=== PATIENT | female | born 2000 | race Caucasian/White ===

== ENCOUNTER 2019-02-17 17:49 | Emergency (ER) | payer OTHER ==
[2019-02-17 18:18] VITALS: BP 115/68; PULSE 79; TEMP 98.7; BMI 22.1
--- NOTE | 2019-02-17 18:32 | PDOC ---
History of Present Illness - General Chief Complaint: Urinary Problem Stated Complaint: ABD PAIN Time Seen by Provider: 02/17/19 18:28 History Source: Patient Exam Limitations: Clinical Condition - History of Present Illness Initial Comments: 02/17/19 18:36 Patient with no significant past medical history present with complaint of urinary frequency, dysuria and suprapubic tenderness radiating to lower back since yesterday. Patient denies fever, chills, nausea, vomiting. Denies any other symptoms. Denies vaginal discharge, vaginal bleeding. Denies IUD contraceptive use. LMP 02/08 Timing/Duration: 24 hours, other (2 days) Past History - Past Medical History Allergies/Adverse Reactions: Allergies Allergy/AdvReac Type Severity Reaction Status Date / Time No Known Allergies Allergy Verified 08/13/16 07:24 Home Medications: Ambulatory Orders Ciprofloxacin [Cipro (Restricted To Id)] 500 mg PO Q12H 5 Days #10 tablet Phenazopyridine HCl [Pyridium] 100 mg PO TID 2 Days #6 tablet 02/17/19 Ranitidine [Zantac -] 150 mg PO ASDIR 02/17/19 COPD: No Thyroid Disease: No - Surgical History Appendectomy: Yes - Immunization History Immunization Up to Date: Yes - Suicide/Smoking/Psychosocial Hx Smoking History: Never smoked Hx Alcohol Use: No Drug/Substance Use Hx: No Substance Use Type: None Review of Systems - Review of Systems Able to Perform ROS?: Yes Is the patient limited Kinyarwanda proficient: No Constitutional: No: Chills, Fever, Malaise HEENTM: No: Symptoms Reported Respiratory: No: Symptoms reported Cardiac (ROS): No: Symptoms Reported ABD/GI: No: Nausea, Vomiting : Yes: See HPI, Burning, Dysuria, Frequency, Pain (suprapubic discomfort), Urgency. No: Discharge, Hematuria Musculoskeletal: Yes: See HPI All Other Systems: Reviewed and Negative *Physical Exam - Vital Signs Last Vital Signs Temp Pulse Resp BP Pulse Ox 98.7 F 79 17 115/68 100 02/17/19 18:15 02/17/19 18:15 02/17/19 18:15 02/17/19 18:15 02/17/19 18:15 - Physical Exam Comments: 02/17/19 18:40 GENERAL: Well developed, well nourished. Awake and alert. No acute distress. NECK: Supple. Full ROM. CARDIOVASCULAR: Regular rate and rhythm. No murmurs, rubs, or gallops. Distal pulses are 2+ and symmetric. PULMONARY: No evidence of respiratory distress. Lungs clear to auscultation bilaterally. No wheezing, rales or rhonchi. ABDOMINAL: mild suprapubic tenderness. Soft. Non-distended. No rebound or guarding. No organomegaly. Normoactive bowel sounds. MUSCULOSKELETAL Normal range of motion at all joints. SKIN: Warm and dry. Normal capillary refill. NEUROLOGICAL: Alert, awake, appropriate. Gait is normal without ataxia. PSYCHIATRIC: Cooperative. Good eye contact. Appropriate mood General Appearance: Yes: Nourished, Appropriately Dressed. No: Apparent Distress Medical Decision Making - Medical Decision Making 02/17/19 18:38 Patient with no significant past medical history present with complaint of urinary frequency, dysuria and suprapubic tenderness radiating to lower back since yesterday. Patient denies fever, chills, nausea, vomiting. Denies any other symptoms. Exam significant for mild suprapubic discomfort without guarding or rebound otherwise normal abdominal exam. Normal cardio exam. UA and urine culture lab ordered. Urine hCG lab ordered. Treat based on urine lab results 02/17/19 19:47 urine hcg negative. UA with no significant findings. Patient will be treated empirically with cipro x 5 days pending UCx results with PCP follow-up *DC/Admit/Observation/Transfer Diagnosis at time of Disposition: Dysuria Abdominal pain Qualifiers: Abdominal location: unspecified location Qualified Code(s): R10.9 - Unspecified abdominal pain - Discharge Dispostion Disposition: HOME Condition at time of disposition: Stable Decision to Admit order: No - Prescriptions Prescriptions: Ciprofloxacin [Cipro (Restricted To Id)] 500 mg PO Q12H 5 Days #10 tablet Phenazopyridine HCl [Pyridium] 100 mg PO TID 2 Days #6 tablet - Referrals Referrals: Cynthia Hansen MD [Primary Care Provider] - - Patient Instructions Printed Discharge Instructions: DI for Urinary Tract Infection (UTI) Additional Instructions: Increase fluid intake. Take medications as prescribed. Follow-up with PCP - Post Discharge Activity
[2019-02-17 19:24] LABS: HCG,QUALITATIVE URINE Negative
[2019-02-17 19:32] LABS: PH,URINE 6.5 (5.0-8.0); URINE APPEARANCE CLEAR; URINE BILIRUBIN NEGATIVE (NEGATIVE); URINE COLOR YELLOW; URINE GLUCOSE (UA) NEGATIVE (NEGATIVE); URINE KETONE NEGATIVE (NEGATIVE); URINE LEUK ESTERASE NEGATIVE (NEGATIVE); URINE NITRITE NEGATIVE (NEGATIVE); URINE PROTEIN NEGATIVE (NEGATIVE); URINE UROBILINOGEN 0.2 mg/dL (0.2-1.0)
== END 2019-02-17 19:54 | disposition home or self-care (01) ==
LOC: JERFT 17:49
DX: R10.9 Unspecified abdominal pain (principal); R30.0 Dysuria
CPT/HCPCS: 36415; 81003; 84703; 87086; 87491; 87591; 99281-25

== ENCOUNTER 2021-08-30 13:01 | Emergency (ER) | payer OTHER ==
[2021-08-30 13:15] VITALS: BP 127/76; PULSE 83; TEMP 98.1; BMI 23.0
[2021-08-30] MEDS ORDERED: IBUPROFEN 600 MG TABLET (FP) PO ONE ×2 (13:36→13:48)
== END 2021-08-30 13:53 | disposition home or self-care (01) ==
LOC: JER 13:01
DX: M54.50 Low back pain, unspecified (principal); M54.2 Cervicalgia; V43.52XA Car driver injured in collision with other type car in traffic accident, initial encounter
CPT/HCPCS: 99283-25